=== PATIENT | female | born 1950 | race Caucasian/White ===

== ENCOUNTER 2017-04-11 09:13 | Emergency (ER) | payer MEDICARE, BC ==
[~2017-04-11] VITALS: Ht 165.1 cm; Wt 92.0 kg
[~2017-04-11 09:13] MED LIST: CHOL5000 PO; HCTZ25T PO; INSU100V36 SQ; LANTUS SQ; MULT-1074 PO; OMEG10006 PO; PIOG45TA PO; ROSU40TA PO; UBID30CA8 PO; VIT1TABL83 PO; ZET10T PO; [UNRECOGNIZED DRUG - OTHER] PO
[2017-04-11 10:26] LABS: BASOPHILS % (AUTO) 0.8 % (0-1); EOSINOPHILS % (AUTO) 0.7 % (0-6); HEMATOCRIT 40.6 % (35.0-45.0); HEMOGLOBIN 14.2 g/dl (12.0-16.0); LYMPHOCYTES # (AUTO) 0.8 X10'3 (1.1-4.8); LYMPHOCYTES % (AUTO) 21.1 % (21-51); MEAN CORPUSCULAR HEMOGLOBIN 30.6 PG (27.0-31.0); MEAN CORPUSCULAR VOLUME 87.4 FL (78-98); MEAN PLATELET VOLUME 7.1 FL (7.4-10.4); MONOCYTES # (AUTO) 0.5 X10'3 (0-0.9); MONOCYTES % (AUTO) 12.9 % (2-12); NEUTROPHILS # (AUTO) 2.5 X10'3 (1.8-7.7); NEUTROPHILS % (AUTO) 64.5 % (42-75); PLATELET COUNT 120 X10'3 (140-440); RED BLOOD COUNT 4.64 X10'6 (4.20-5.60); RED CELL DISTRIBUTION WIDTH 14.2 % (11.5-14.5); WHITE BLOOD COUNT 3.9 X10'3 (4.5-11.0)
[2017-04-11 10:40] LABS: PARTIAL THROMBOPLASTIN TIME 29 SECONDS (22-32); PROTHROMBIN TIME 10.1 SECONDS (9.0-12.0)
[2017-04-11 10:45] LABS: ALANINE AMINOTRANSFERASE 29 U/L (12-78); ALBUMIN 3.3 G/DL (3.4-5.0); ALBUMIN/GLOBULIN RATIO 0.7 (1.1-1.5); ALKALINE PHOSPHATASE 53 IU/L (46-116); ANION GAP 8 (8-16); ASPARTATE AMINO TRANSFERASE 37 U/L (10-37); BILIRUBIN,TOTAL 0.6 MG/DL (0.1-1.0); BLOOD UREA NITROGEN 19 MG/DL (7-18); BUN/CREATININE RATIO 24.7 (6.6-38.0); CALCIUM 8.9 MG/DL (8.5-10.1); CHLORIDE 101 MMOL/L (99-107); CREATININE 0.77 MG/DL (0.40-0.90); GLUCOSE 131 MG/DL (70-104); POTASSIUM 3.7 MMOL/L (3.5-5.1); SODIUM 139 MMOL/L (135-145); TOTAL CARBON DIOXIDE 29.9 MMOL/L (24-32); TOTAL PROTEIN 7.9 G/DL (6.4-8.2); eGFR 75 ML/MIN
[2017-04-11] MEDS ORDERED: GUAI-647 PO (11:12)
[2017-04-11] MEDS ORDERED: ALBU6.7H INH (11:12)
[2017-04-11 11:17] VITALS: BP 153/66
== END 2017-04-11 11:18 | disposition home or self-care (01) ==
LOC: ER 09:17
DX: J06.9 Acute upper respiratory infection, unspecified (principal); J45.909 Unspecified asthma, uncomplicated; I25.10 Atherosclerotic heart disease of native coronary artery without angina pectoris; E78.00 Pure hypercholesterolemia, unspecified; E11.9 Type 2 diabetes mellitus without complications; G89.29 Other chronic pain; Z90.49 Acquired absence of other specified parts of digestive tract; Z88.5 Allergy status to narcotic agent; Z88.0 Allergy status to penicillin; Z79.4 Long term (current) use of insulin
CPT/HCPCS: 36415; 71045; 80053; 84484; 85025; 85610; 85730; 93005; 99285

== ENCOUNTER 2017-04-20 04:20 | Outpatient (CLI) | payer MEDICARE, BC ==
[~2017-04-20 04:20] MED LIST changes: +ALBU6.7H INH
== END 2017-04-20 23:59 | disposition home or self-care (01) ==
LOC: DIABETIC 04:20
PROVIDERS: ATTEND Specialist
DX: E10.9 Type 1 diabetes mellitus without complications (principal); I10 Essential (primary) hypertension; J45.909 Unspecified asthma, uncomplicated
CPT/HCPCS: G0108

== ENCOUNTER 2017-07-20 01:31 | Outpatient (CLI) | payer MEDICARE, BC | END 2017-07-20 23:59 | disposition home or self-care (01) | LOC: DIABETIC 01:31 | PROVIDERS: ATTEND Specialist | DX: E10.8 Type 1 diabetes mellitus with unspecified complications (principal); I10 Essential (primary) hypertension; J45.909 Unspecified asthma, uncomplicated | CPT/HCPCS: G0108 ==

== ENCOUNTER 2018-09-04 13:41 | Day surgery (SDC) | payer MEDICARE, BC ==
[2018-09-04] VITALS (10 sets, daily range): BP systolic 115–155; BP diastolic 61–84
[~2018-09-04] VITALS: Ht 165.1 cm; Wt 69.4 kg
[2018-09-04] MEDS ORDERED: normal saline 1,000 ML IV SCH (14:25)
[2018-09-04] MEDS ORDERED: LORazepam 0.5 MG tablet PO PRN (14:25)
[2018-09-04] MEDS ORDERED: diphenhydrAMINE 25mg capsule PO PRN (14:25)
[2018-09-04] MEDS ORDERED: D3 (14:33)
[2018-09-04] MEDS ORDERED: OMEG1CAP2 (14:33)
[2018-09-04] MEDS ORDERED: ASPI-611 PO (14:33)
[2018-09-04] MEDS ORDERED: MUCINEX (14:33)
[2018-09-04] MEDS ORDERED: iohexol 350MG/ML 100ml bottle IV ONE (16:41)
[2018-09-04] MEDS ORDERED: LIDOcaine 1% (10mg/ml)w/preservative injection 20ml MDV ONE (16:41)
[2018-09-04] MEDS ORDERED: midazolam 2 mg/2 ml injection ONE (16:53)
[2018-09-04] MEDS ORDERED: OXAZEpam 15mg capsule PO PRN (18:05)
[2018-09-04] MEDS ORDERED: proCHLORperazine 10 MG/2 ml inj IV PRN (18:05)
[2018-09-04] MEDS ORDERED: ondansetron/PF 4mg/2ml inj IV PRN (18:05)
== END 2018-09-04 20:20 | disposition home or self-care (01) ==
LOC: SSTAY O 13:41
PROVIDERS: ATTEND Internal Medicine Interventional Cardiology
DX: I25.10 Atherosclerotic heart disease of native coronary artery without angina pectoris (principal); I10 Essential (primary) hypertension; E11.9 Type 2 diabetes mellitus without complications; I08.0 Rheumatic disorders of both mitral and aortic valves; I25.2 Old myocardial infarction; E78.5 Hyperlipidemia, unspecified; Z79.82 Long term (current) use of aspirin; Z79.899 Other long term (current) drug therapy; Z87.891 Personal history of nicotine dependence; Z98.890 Other specified postprocedural states
CPT/HCPCS: 93005; 93458; 99152; C1769; J1644; J2001; J2250; J7030; Q0163; Q9967; A4620; A6258